=== PATIENT | female | born 1985 | race American Indian/Alaskan Native ===

== ENCOUNTER 2019-07-15 22:13 | Emergency (ER) | payer SELFPAY ==
--- NOTE | 2019-07-15 22:30 | Event Note ---
ED Screening Note Date of service: 07/15/19 Time: 22:25 ED Screening Note: This is a 34 y.o. F. that presents to the ER with RLQ pain. Patient reports [address] PCP [address] Martin told her to come to the Emergency room. PMH gestational HTN, DVT RLE Patient states she had essure after last . LMP 05/04/2019, A7 Denies vaginal bleeding This initial assessment/diagnostic orders/clinical plan/treatment(s) is/are subject to change based on patients health status, clinical progression and re- assessment by fellow clinical providers in the ED. Further treatment and workup at subsequent clinical providers discretion. Patient/guardian urged not to elope from the ED as their condition may be serious if not clinically assessed and managed. Initial orders include: UA, urine hCG
[2019-07-15] MEDS ORDERED: TYLENOL PO ONE (23:18)
[2019-07-15 23:42] LABS: Basophils % (Auto) 0.4 % (0.0-1.8); Eosinophils # (Auto) 0.2 K/mm3 (0.0-0.4); Eosinophils % (Auto) 3.1 % (0.0-4.3); Hematocrit 36.5 % (30.3-42.9); Hemoglobin 12.1 gm/dl (10.1-14.3); Lymphocytes # (Auto) 2.6 K/mm3 (1.2-5.4); Lymphocytes % (Auto) 35.1 % (13.4-35.0); Mean Corpuscular HGB Conc 33 % (30-34); Mean Corpuscular Volume 89 fl (79-97); Monocytes # (Auto) 0.5 K/mm3 (0.0-0.8); Monocytes % (Auto) 6.4 % (0.0-7.3); Platelet Count 296 K/mm3 (140-440); Red Blood Count 4.11 M/mm3 (3.65-5.03); Red Cell Distribution Width 13.6 % (13.2-15.2)
[2019-07-15 23:56] LABS: Bilirubin,Urine NEG (Negative); Blood,Urine MOD (Negative); Color,Urine Yellow (Yellow); Mucus,Urine FEW /HPF; Protein,Urine <15 mg/dL mg/dL (Negative); Urobilinogen,Urine < 2.0 mg/dL (<2.0)
[2019-07-15 23:59] LABS: Alanine Aminotransferase 8 units/L (7-56); Albumin 4.3 g/dL (3.9-5); BUN/Creatinine Ratio 22; Blood Urea Nitrogen 13 mg/dL (7-17); Calcium 9.1 mg/dL (8.4-10.2); Hemolysis Index 1
[2019-07-16 00:02] LABS: HCG Qualitative,Urine Negative (Negative)
--- NOTE | 2019-07-16 02:04 | Ultrasound Report ---
OB Ultrasound HISTORY: pelvic pain, - possible ectopic. Severe right lower quadrant pain for the past 3 w eeks, the beta hCG level is less than 2 TECHNIQUE: Grayscale and color Doppler imaging performed. COMPARISON: No recent comparison exam. FINDINGS: Transabdominal and endovaginal imaging was performed. Uterus measures 9.0 x 5.0 x 3.7 cm with endometrial echocomplex measuring 3 mm. There are heterogeneo us echogenicity masses in the uterus measuring up to 2.6 cm in maximal dimension likely consistent wi th fibroid disease. No significant pelvic free fluid. No intrauterine gestation identified. Left ovary not visualized. Right ovary is normal in size and contains cysts the largest of which is l ikely functional and measures 1.6 cm. The other cyst is simple in appearance. IMPRESSION: 1. Uterine fibroid disease. 2. No intrauterine gestation identified. 3. Nonvisualization of the left ovary. 4. Ovarian cysts, one of which is likely functional and the other simple. Signer Name: Benjamin Mccray MD Signed: 07/16/2019 1:59 AM Workstation Name: [id number]
--- NOTE | 2019-07-16 02:40 | Emergency Department Report ---
ED Abdominal Pain HPI - General Chief Complaint: Abdominal Pain Stated Complaint: ABD PAIN Time Seen by Provider: 07/15/19 22:25 Source: patient Mode of arrival: Ambulatory Limitations: No Limitations - History of Present Illness MD Complaint: abdominal pain, other (diffuse lower abdominal pain) -: Sudden, week(s) (3) Location: suprapubic Radiation: none Migration to: no migration Severity: moderate Severity scale (0 -10): 6 Quality: cramping, aching, sharp Consistency: constant Improves With: nothing Worsens With: nothing Associated Symptoms: denies other symptoms. denies: nausea, vomiting, diarrhea, fever, chills, constipation, hematemesis, hematochezia, melena, anorexia, syncope Treatments Prior to Arrival: NSAIDs - Related Data LMP (females 10-50): 3 weeks Previous Rx's Medication Instructions Recorded Last Taken Type Ibuprofen [Motrin] 800 mg PO Q8HR PRN #20 tablet 07/16/19 Unknown Rx traMADol [Ultram] 50 mg PO Q6HR PRN #15 tablet 07/16/19 Unknown Rx Allergies Allergy/AdvReac Type Severity Reaction Status Date / Time doxycycline Allergy Vomiting Verified 07/15/19 22:19 labetalol Allergy Itching Verified 07/15/19 22:19 ED Review of Systems ROS: Stated complaint: ABD PAIN Other details as noted in HPI Constitutional: denies: chills, fever Eyes: denies: eye pain, eye discharge, vision change ENT: denies: ear pain, throat pain Respiratory: denies: cough, shortness of breath, wheezing Cardiovascular: denies: chest pain, palpitations Endocrine: no symptoms reported Gastrointestinal: abdominal pain (diffuse lower ). denies: nausea, diarrhea Genitourinary: denies: urgency, dysuria, discharge Musculoskeletal: denies: back pain, joint swelling, arthralgia Skin: denies: rash, lesions Neurological: denies: headache, weakness, paresthesias Psychiatric: denies: anxiety, depression Hematological/Lymphatic: denies: easy bleeding, easy bruising ED Past Medical Hx - Past Medical History Previous Medical History?: Yes Hx Hypertension: Yes (Gestational) Additional medical history: dvt - Surgical History Hx Cholecystectomy: Yes Additional Surgical History: Tubal Ligation, , ESSURE, ABLASION - Social History Smoking Status: Current Some Day Smoker Substance Use Type: Alcohol, Marijuana - Medications Home Medications: Home Medications Medication Instructions Recorded Confirmed Last Taken Type Ibuprofen [Motrin] 800 mg PO Q8HR PRN #20 tablet 07/16/19 Unknown Rx traMADol [Ultram] 50 mg PO Q6HR PRN #15 tablet 07/16/19 Unknown Rx ED Physical Exam - General Limitations: No Limitations General appearance: alert, in no apparent distress - Head Head exam: Present: atraumatic, normocephalic, normal inspection - Eye Eye exam: Present: normal appearance, PERRL, EOMI Pupils: Present: normal accommodation - ENT ENT exam: Present: normal exam, normal orophraynx, mucous membranes moist, TM's normal bilaterally, normal external ear exam - Neck Neck exam: Present: normal inspection, full ROM - Respiratory Respiratory exam: Present: normal lung sounds bilaterally. Absent: respiratory distress, wheezes, rales, rhonchi, stridor, chest wall tenderness, accessory muscle use, decreased breath sounds - Cardiovascular Cardiovascular Exam: Present: regular rate, normal rhythm, normal heart sounds. Absent: systolic murmur, diastolic murmur, rubs, gallop - GI/Abdominal GI/Abdominal exam: Present: soft, tenderness (moderately tender suprapubic area), normal bowel sounds. Absent: distended, hyperactive bowel sounds, hypoactive bowel sounds, organomegaly, bruit, pulsatile mass - Rectal Rectal exam: Present: deferred - Extremities Exam Extremities exam: Present: normal inspection, full ROM, normal capillary refill - Back Exam Back exam: Present: normal inspection, full ROM. Absent: tenderness, CVA tenderness (L), muscle spasm, paraspinal tenderness - Neurological Exam Neurological exam: Present: alert, oriented X3, CN II-XII intact, normal gait, reflexes normal - Psychiatric Psychiatric exam: Present: normal affect, normal mood - Skin Skin exam: Present: warm, dry, intact, normal color. Absent: rash ED Course Vital Signs 07/15/19 22:26 Temperature 97.9 F Pulse Rate 97 H Respiratory 18 Rate Blood Pressure 133/75 O2 Sat by Pulse 98 Oximetry - Reevaluation(s) Reevaluation #1: 07/16/19 02:38 This is a 34-year-old [place] female who presented to the ED with persistent severe diffuse lower abdominal pain for the last 3 weeks and subjective to positive tests at home. In the ED, patient is alert and oriented 3 and is not in distress. Patient was treated for pain in the ED. Lab test results were reviewed and all unremarkable including urine hCG tests which was negative, hCG Quant studies which was also negative. Transvaginal ultrasound was performed and it showed uterus that measures 9.0 x 5.0 x 3.7 cm with endometrial echocomplex measuring 3 mm. There are heterogeneous echogenicity masses in the uterus measuring up to 2.6 cm in maximal dimension likely consistent with fibroid disease. No significant pelvic free fluid. No intrauterine gestation identified. Left ovary not visualized. Right ovary is normal in size and contains cysts the largest of which is likely functional and measures 1.6 cm. The other cyst is simple in appearance. On reevaluation patient's pain is well-controlled with medications and was discharged home on medications including pain medications. Patient was advised to follow-up with [facility] physician or primary care physician in 7-10 days for reevaluation. Patient was advised to return to the ED immediately if symptoms get worse. 07/16/19 02:40 ED Medical Decision Making - Lab Data Result diagrams: 07/15/19 Unknown 07/15/19 23:26 - Radiology Data Radiology results: report reviewed, image reviewed Findings [facility] [address] [place] [address] Ultrasound Report Signed Patient: OZ WALKER MR#: [id number] : 1985 Acct:[id number] Age/Sex: 34 / F ADM Date: 07/15/19 Loc: ED Attending Dr: Ordering Physician: FELICE QUIROS Date of Service: 07/15/19 Procedure(s): US OB <= 14 weeks fetus Accession Number(s): [id number] cc: FELICE QUIROS OB Ultrasound HISTORY: pelvic pain, - possible ectopic. Severe right lower quadrant pain for the past 3 weeks, the beta hCG level is less than 2 TECHNIQUE: Grayscale and color Doppler imaging performed. COMPARISON: No recent comparison exam. FINDINGS: Transabdominal and endovaginal imaging was performed. Uterus measures 9.0 x 5.0 x 3.7 cm with endometrial echocomplex measuring 3 mm. There are heterogeneous echogenicity masses in the uterus measuring up to 2.6 cm in maximal dimension likely consistent with fibroid disease. No significant pelvic free fluid. No intrauterine gestation identified. Left ovary not visualized. Right ovary is normal in size and contains cysts the largest of which is likely functional and measures 1.6 cm. The other cyst is simple in appearance. IMPRESSION: 1. Uterine fibroid disease. 2. No intrauterine gestation identified. 3. Nonvisualization of the left ovary. 4. Ovarian cysts, one of which is likely functional and the other simple. Signer Name: Benjamin Mccray MD Signed: 07/16/2019 1:59 AM Workstation Name: [id number] Transcribed By: YUNG Dictated By: Benjamin Mccray MD Electronically Authenticated By: Benjamin Mccray MD Signed Date/Time: 07/16/19 0159 - Medical Decision Making This is a 34-year-old [place] female who presented to the ED with persistent severe diffuse lower abdominal pain for the last 3 weeks and subjective to positive tests at home. In the ED, patient is alert and oriented 3 and is not in distress. Patient was treated for pain in the ED. Lab test results were reviewed and all unremarkable including urine hCG tests which was negative, hCG Quant studies which was also negative. Transvaginal ultrasound was performed and it showed uterus that measures 9.0 x 5.0 x 3.7 cm with endometrial echocomplex measuring 3 mm. There are heterogeneous echogenicity masses in the uterus measuring up to 2.6 cm in maximal dimension likely consistent with fibroid disease. No significant pelvic free fluid. No intrauterine gestation identified. Left ovary not visualized. Right ovary is normal in size and contains cysts the largest of which is likely functional and measures 1.6 cm. The other cyst is simple in appearance. On reevaluation patient's pain is well-controlled with medications and was discharged home on medications including pain medications. Patient was advised to follow-up with [facility] physician or primary care physician in 7-10 days for reevaluation. Patient was advised to return to the ED immediately if symptoms get worse. - Differential Diagnosis Abdominal pain; Uterine fibroids; , acute UTI Critical care attestation.: If time is entered above; I have spent that time in minutes in the direct care of this critically ill patient, excluding procedure time. ED Disposition Clinical Impression: Abdominal pain Qualifiers: Abdominal location: lower abdomen, unspecified Qualified Code(s): R10.30 - Lower abdominal pain, unspecified Uterine fibroid Qualifiers: Uterine leiomyoma location: unspecified location Qualified Code(s): D25.9 - Leiomyoma of uterus, unspecified Ovarian cyst Qualifiers: Laterality: right Qualified Code(s): N83.201 - Unspecified ovarian cyst, right side Disposition: TO HOME OR SELFCARE Is pt being admited?: No Does the pt Need Aspirin: No Condition: Stable Instructions: Abdominal Pain (ED), Uterine Fibroids (ED), Ovarian Cyst (ED) Additional Instructions: Take medications with food, drink plenty of fluids and follow up with your city hospital physician or [facility] physician in 7-10 days for reevaluation. Return to the ED immediately if symptoms get worse. Prescriptions: Ibuprofen [Motrin] 800 mg PO Q8HR PRN #20 tablet PRN Reason: Pain , Severe (7-10) traMADol [Ultram] 50 mg PO Q6HR PRN #15 tablet PRN Reason: Pain Referrals: LEBRON WAHL MD [Primary Care Provider] - 3-5 Days Time of Disposition: 02:44 Print Language: VIETNAMESE
[2019-07-16 03:01] VITALS: BP 114/68
== END 2019-07-16 03:00 | disposition home or self-care (01) ==
LOC: ED 22:13
DX: D25.9 Leiomyoma of uterus, unspecified (principal); N83.201 Unspecified ovarian cyst, right side; I10 Essential (primary) hypertension; F17.200 Nicotine dependence, unspecified, uncomplicated; F12.10 Cannabis abuse, uncomplicated; Z98.51 Tubal ligation status; Z88.1 Allergy status to other antibiotic agents; Z88.8 Allergy status to other drugs, medicaments and biological substances
CPT/HCPCS: 36415; 76801; 76817; 80053; 81001; 81025; 83690; 84702; 85025